=== PATIENT | female | born 1985 | race Caucasian/White ===

== ENCOUNTER 2018-08-26 15:48 | Emergency (ER) | payer OTHER ==
[2018-08-26 15:53] VITALS: BP 165/84
--- NOTE | 2018-08-26 17:04 | EDPHY ---
H & P Smoking Status: Never smoked Time Seen by Provider: 08/26/18 17:01 HPI/ROS: CHIEF COMPLAINT: Vaginal pain and swelling HISTORY OF PRESENT ILLNESS: Patient is a 33-year-old female here with worsening pain and swelling after a straddle injury 5 days ago. She was seen here and had an x-ray which showed no pelvic fracture. She did have a vulvar hematoma at that time. He states he has been taking Rupert for pain and the swelling has worsened along with worsening pain. She denies any fever. She is able to urinate. She takes no blood thinners. ROS As detailed in HPI (Jay Bush) Physical Exam: General: Alert and oriented. Nontoxic appearing. No acute distress HEENT: Pupils PERRLA. No oral lesions. Cardiopulmonary: Regular rate and rhythm. No lower extremity edema Skin: [place] warm and dry. See exam : 4 cm by 2 cm left labia minora hematoma with skin breakdown causing slow oozing of blood. No vaginal lacerations. Surrounding ecchymosis involving the entire pelvic region Muscle skeletal: Moving all 4 extremities. Equal strength in upper extremities and lower extremities. Ambulatory. (Jay Bush) Constitutional: Initial Vital Signs Temperature (C) 36.8 C 08/26/18 15:50 Heart Rate 94 08/26/18 15:50 Respiratory Rate 16 08/26/18 15:50 Blood Pressure 165/84 H 08/26/18 15:50 O2 Sat (%) 98 08/26/18 15:50 O2 Delivery Mode Room Air Allergies/Adverse Reactions: No Known Allergies Allergy (Verified 08/26/18 15:49) Home Medications: Medication Instructions Recorded Hydrocodone/APAP 5/325 [Rupert 1 - 2 tab PO Q4H PRN #10 tab 08/22/18 5/325] Hydrocodone/APAP 5/325 [Rupert 1 tab PO Q6 #12 tab 08/26/18 5/325 (*)] Medical Decision Making ED Course/Re-evaluation: 33-year-old female here with worsening pain and swelling after straddle injury 5 days ago. She does have a large vulvar hematoma. I discussed the case with on-call OBGYN who agrees to see the patient tomorrow in clinic. Patient was advised to call the clinic tomorrow morning for follow-up. Pain was well controlled with Rupert in the emergency room. (Moisés Bushew) I did not see this patient while she was in the emergency department. However her care was discussed with the PA while the patient was in the department. I agree with treatment plan and management (Roger Mehta) Differential Diagnosis: Pelvic fracture, abscess, cellulitis, vascular injury (Jay Bush) - Data Points Medications Given: Discontinued Medications Hydrocodone Bitart/Acetaminophen (Rupert 5/325) 1 tab PO EDNOW ONE Stop: 08/26/18 17:50 Last Admin: 08/26/18 18:07 Dose: 1 tab Departure - Departure Disposition: Home, Routine, Self-Care Clinical Impression: Hematoma of labia majora, Pelvic straddle injury of soft tissues Condition: Good Additional Instructions: Please call the office of Dr. Hines tomorrow morning for follow-up tomorrow. They are expecting her call. The numbers provided to her discharge paperwork. Return to the ER for any worsening symptoms such as uncontrolled bleeding fever or uncontrolled pain. Apply ice packs to the area to control swelling. Referrals: NONE *PRIMARY CARE P,. [Primary Care Provider] - As per Instructions Elisabet Hines MD [Medical Doctor] - As per Instructions Prescriptions: Hydrocodone/APAP 5/325 [Rupert 5/325 (*)] 1 tab PO Q6 #12 tab
[2018-08-26] MEDS ORDERED: HYDROCODONE/APAP 5/325 TAB PO ONE (17:49)
== END 2018-08-26 18:10 | disposition home or self-care (01) ==
LOC: MERGE 15:48
DX: S30.2 Contusion of external genital organs (principal); W22.8XXD Striking against or struck by other objects, subsequent encounter